=== PATIENT | male | born 1980 | race Caucasian/White ===

== ENCOUNTER 2019-10-21 18:51 | Emergency (ER) | payer OTHER ==
[2019-10-21] MEDS ORDERED: SODIUM CHLORIDE 0.9% 1,000 ML IV ONE (19:09)
[2019-10-21] MEDS ORDERED: KETOROLAC 30 MG/ML VIAL IVP STA (19:09)
[2019-10-21] MEDS ORDERED: HYDROmorphone 1 MG/ML CARPUJECT IVP STA (19:09)
[2019-10-21] MEDS ORDERED: ONDANSETRON 4 MG/2 ML VIAL IVP STA (19:09)
--- NOTE | 2019-10-21 19:23 | ED Physician Documentation ---
PD HPI ABD PAIN - Stated complaint Stated Complaint: RT SIDED PX - Chief complaint Chief Complaint: Abd Pain - History obtained from History obtained from: Patient (He had some mild right lower quadrant pain but it suddenly became severe around 630 night with several episodes of vomiting. No history of abdominal surgeries.) Review of Systems Constitutional: denies: Fever, Chills Nose: denies: Rhinorrhea / runny nose Cardiac: denies: Chest pain / pressure, Palpitations Respiratory: denies: Dyspnea, Cough PD PAST MEDICAL HISTORY - Past Medical History Past Medical History: No - Past Surgical History Past Surgical History: No - Allergies Allergies/Adverse Reactions: Allergies Allergy/AdvReac Type Severity Reaction Status Date / Time No Known Drug Allergies Allergy Verified 10/21/19 18:59 - Social History Does the pt smoke?: No Smoking Status: Never smoker Does the pt drink ETOH?: Yes Does the pt have substance abuse?: No - Immunizations Immunizations are current?: No - POLST Patient has POLST: No PD ED PE NORMAL - Vitals Vital signs reviewed: Yes - General General: Alert and oriented X 3, Other (He appears uncomfortable and restless) - Respiratory Respiratory: No respiratory distress, Clear bilaterally - Abdomen Abdomen: Soft, Non tender - Back Back: No CVA TTP, No spinal TTP - Derm Derm: Normal color, Warm and dry - Neuro Neuro: Alert and oriented X 3, Normal speech Results - Vitals Vitals: Vital Signs - 24 hr 10/21/19 18:59 Temperature 36.8 C Heart Rate 127 H Respiratory 20 Rate Blood Pressure 150/100 H O2 Saturation 98 Oxygen O2 Source Room air - Labs Labs: Laboratory Tests 10/21/19 10/21/19 10/21/19 19:10 19:45 19:45 WBC 10.3 RBC 5.33 Hgb 15.8 Hct 44.2 MCV 82.9 MCH 29.6 MCHC 35.7 RDW 12.9 Plt Count 261 MPV 10.7 Neut # (Auto) 7.1 H Lymph # (Auto) 2.0 [place] # (Auto) 1.1 H Eos # (Auto) 0.1 Baso # (Auto) 0.1 Absolute Nucleated RBC 0.00 Nucleated RBC % 0.0 Sodium 138 Potassium 3.3 L Chloride 105 Carbon Dioxide 24 Anion Gap 9.0 BUN 13 Creatinine 1.6 H Estimated GFR (MDRD) 48 L Glucose 98 Calcium 8.9 Total Bilirubin 0.9 AST 27 ALT 46 Alkaline Phosphatase 67 Total Protein 6.8 Albumin 4.3 Globulin 2.5 Albumin/Globulin Ratio 1.7 Lipase 31 Urine Color YELLOW Urine Clarity CLEAR Urine pH 6.0 Ur Specific [place] 1.020 Urine Protein NEGATIVE Urine Glucose (UA) NEGATIVE Urine Ketones NEGATIVE Urine Occult Blood NEGATIVE Urine Nitrite NEGATIVE Urine Bilirubin NEGATIVE Urine Urobilinogen 0.2 (NORMAL) Ur Leukocyte Esterase TRACE H Urine RBC 0-5 Urine WBC 4-5 Ur Squamous Epith Cells RARE Squamous Urine Bacteria Rare Ur Microscopic Review INDICATED Urine Culture Comments INDICATED - Rads (name of study) CT KUB Radiology: EMP read contemporaneously (Normal appendix, no calculi. Lingular groundglass opacity and increased subcentimeter mesenteric lymph nodes.) PD MEDICAL DECISION MAKING - ED course ED course: 39-year-old gentleman presents with sudden severe right lower quadrant pain with vomiting, nontender, initially felt most consistent with renal colic. CT imaging done showing no evidence of same, and the images were reviewed with the radiologist because of a partial turn in the mesentery on the right side which he agreed with but felt it was most consistent with panniculitis. Pain-free after meds. Close watchful waiting and return precautions were given. Departure - Departure Disposition: 01 Home, Self Care Clinical Impression: Abdominal pain Qualifiers: Abdominal location: right lower quadrant Qualified Code(s): R10.31 - Right lower quadrant pain Condition: Good Record reviewed to determine appropriate education?: Yes Instructions: Abdominal Pain Comments: If pain recurs and is severe please return immediately for reevaluation, or if not better in 12 to 24 hours.
[2019-10-21 19:25] LABS: BILIRUBIN,URINE NEGATIVE (NEGATIVE); GLUCOSE, URINE (UA) NEGATIVE (NEGATIVE); KETONES,URINE (UA) NEGATIVE (NEGATIVE); LEUKOCYTE ESTERASE, URINE TRACE (NEGATIVE); NITRITE,URINE NEGATIVE (NEGATIVE); OCCULT BLOOD,URINE NEGATIVE (NEGATIVE); PROTEIN,URINE NEGATIVE (NEGATIVE); UROBILINOGEN,URINE 0.2 (NORMAL) E.U./dL (NORMAL)
[2019-10-21 19:42] LABS: CLARITY,URINE CLEAR (CLEAR)
[2019-10-21 19:43] LABS: BACTERIA,URINE Rare /HPF (None Seen); RBC,URINE 0-5 /HPF (0-5); SQUAMOUS EPITHELIAL CELL,UR RARE Squamous (<= Few)
[2019-10-21 20:01] LABS: BASOPHILS # (AUTO) 0.1 10^3/uL (0.0-0.1); BASOPHILS % (AUTO) 0.6 %; EOSINOPHILS # (AUTO) 0.1 10^3/uL (0.0-0.7); EOSINOPHILS % (AUTO) 0.5 %; HGB - HEMOGLOBIN 15.8 g/dL (14.0-18.0); MEAN CORPUSCULAR HEMOGLOBIN 29.6 pg (27.0-31.0); MEAN CORPUSCULAR HGB CONC 35.7 g/dL (32.0-36.0); MEAN CORPUSCULAR VOLUME 82.9 fL (80.0-94.0); MEAN PLATELET VOLUME 10.7 fL (7.4-11.4); MONOCYTES # (AUTO) 1.1 10^3/uL (0.0-1.0); MONOCYTES % (AUTO) 10.7 %; NEUTROPHILS # (AUTO) 7.1 10^3/uL (1.5-6.6); NEUTROPHILS % (AUTO) 68.7 %; PLT - PLATELET COUNT 261 10^3/uL (130-450); RED BLOOD COUNT 5.33 10^6/uL (4.70-6.10); RED CELL DISTRIBUTION WIDTH 12.9 % (12.0-15.0); WHITE BLOOD COUNT 10.3 x10^3/uL (4.8-10.8)
--- NOTE | 2019-10-21 20:06 | CT Report ---
Reason: R abd pain suspect stone Procedure Date: 10/21/2019 Accession Number: [id number] / [id number] Procedure: CT - Abdomen/Pelvis WO CPT Code: Final Report FULL RESULT: EXAM: CT ABDOMEN AND PELVIS (CT KUB) WITHOUT CONTRAST. EXAM DATE: 10/21/2019 07:36 PM. CLINICAL HISTORY: Right abdominal pain suspect stone. COMPARISONS: None. TECHNIQUE: Routine axial helical CT imaging was performed through the abdomen and pelvis without IV contrast. Reconstructions: Coronal and sagittal. In accordance with CT protocol optimization, one or more of the following dose reduction techniques were utilized for this exam: automated exposure control, adjustment of mA and/or KV based on patient size, or use of iterative reconstructive technique. FINDINGS: Lung Bases: Focus of ill-defined multifocal groundglass opacity in the lingula. Included portions of the heart are unremarkable. Tiny hiatal hernia. Right Kidney/Ureter: No stones, hydronephrosis, or hydroureter. No perinephric fat stranding. Left Kidney/Ureter: No stones, hydronephrosis, or hydroureter. No perinephric fat stranding. Other Solid Organs: Unenhanced images of the liver, spleen, adrenals and pancreas are unremarkable. Gallbladder/Bile Ducts: Unremarkable. Peritoneal Cavity: Moderate distention of the stomach. No bowel obstruction. Mild increased density of the small bowel mesentery and numerous largely subcentimeter short axis dimension lymph nodes in the small bowel mesentery. Findings can be seen with panniculitis. No bowel obstruction. Small to moderate volume of stool in the colon. No diverticulitis. No free air. No enlarged retroperitoneal lymph nodes. Appendix is normal. Pelvic Organs: Urinary bladder is mildly distended and unremarkable. Prostate gland and seminal vesicles unremarkable. No pelvic adenopathy. No pelvic free fluid. Vasculature: Unremarkable. Other: Mild degenerative changes lower thoracic and lumbar spine. IMPRESSION: 1. No nephrolithiasis. No hydronephrosis. No bladder calculi. 2. Normal appendix. 3. Small to moderate volume of stool in the colon. No bowel obstruction. No diverticulitis. Increased density and subcentimeter mesenteric lymph nodes can be seen with panniculitis. 4. Numerous foci of groundglass opacity in the lingula most likely inflammatory/infectious in etiology. 5. No acute osseous abnormalities. [facility]
[2019-10-21 20:17] LABS: ALBUMIN 4.3 g/dL (3.2-5.5); ALBUMIN/GLOBULIN RATIO 1.7 (1.0-2.2); BILIRUBIN,TOTAL 0.9 mg/dL (0.2-1.0); CALCIUM 8.9 mg/dL (8.5-10.3); CREATININE 1.6 mg/dL (0.6-1.2); TOTAL PROTEIN 6.8 g/dL (6.7-8.2)
[2019-10-21] MEDS ORDERED: oxyCODONE/ACET 5/325 Prepack 4 PO STA (20:36)
[2019-10-21 20:49] VITALS: BP 137/93
== END 2019-10-21 21:07 | disposition home or self-care (01) ==
LOC: ED 18:51
DX: R10.31 Right lower quadrant pain (principal)
CPT/HCPCS: 36415; 74176; 80053; 81001; 83690; 85025; 87086; 96361; 96374; 96375; 99284; J1170; 81003